=== PATIENT | female | born 1950 | race Caucasian/White ===

== ENCOUNTER 2017-03-17 05:53 | Day surgery (SDC) | payer OTHER, MEDICARE ==
--- NOTE | 2017-03-11 10:34 | GHP ---
[f rep st] HISTORY AND PHYSICAL DATE OF ADMISSION: 03/17/2017 ADMITTING DIAGNOSES: 1. Uterine fibroids. 2. Hydrosalpinx. 3. Thickened endometrial lining. HISTORY OF PRESENT ILLNESS: Patient is a 66-year-old postmenopausal female, nulliparous, who presents to my office in mid January to followup MRI results. Patient was having some hip problems as well as lower abdominal fullness and underwent an MRI in November. MRI showed multiple myometrial masses within the uterus consistent with fibroids, the largest measuring 3.5 cm. It also showed a complex lobulated fluid collection in the right adnexa, measuring 6 x 4 cm, and this was new from the previous study. Patient does deny any postmenopausal bleeding. She is stable on bio-identical hormone replacement. No weight changes. No early satiety. She does, again, note some abdominal fullness and some mild discomfort but denies any pain at this time. Patient did get an ultrasound in my office, and the ultrasound again showed a fibroid uterus, as well as a large 6 x 4 cystic tubular mass, most likely represents a hydrosalpinx. Ovaries not seen bilaterally. Endometrial lining is thickened at 6 mm. Discussed with patient that she is having some discomfort and fullness and that it could be due to these fibroids and/or large fluid-filled tube. It was recommend going in surgically, laparoscopically, and looking at etiology of her discomfort as well as removing the hydrosalpinx and the other tube, because 20% of ovarian cancer can start in the tubes, as well as doing a biopsy of the lining of the uterus secondary to a thickened endometrium. Patient agrees with the plan at this time PAST OBSTETRICAL HISTORY: Patient is nulliparous. GYNECOLOGIC HISTORY: Age of menarche is 8. She is postmenopausal since the age 53. She has had 1 abnormal Pap smear and had a colposcopy done; no treatment. She does have a history of herpes diagnosed in 1984. Denies exposure to any other sexually transmitted diseases. Last Pap smear was 2016 and normal. PAST MEDICAL HISTORY: Diverticulitis, uterine fibroids, hypothyroidism, depression, and anxiety. PAST SURGICAL HISTORY: Tonsil and adenoids in 195, myomectomy 1984, and 2000 cosmetic surgery (tummy tuck). CURRENT MEDICATIONS: [place] Thyroid, Lunesta, Paxil, Wellbutrin, bio-identical hormones. ALLERGIES: No known drug allergies. Food allergies include soy, sesame seed, almonds, and gluten. SOCIAL HISTORY: Patient is in a monogamous relationship for the past 4 years. She is a Medicare sales consultant insurance. Denies any tobacco or illicit drug use. She does drink 1-2 drinks per week. She is on a gluten-free diet. Drinks 1-2 cups of caffeine a day. FAMILY HISTORY: Father with lung cancer and at age 72. REVIEW OF SYSTEMS: 10-point review of systems is negative. Positive pertinent' s noted in HPI. PHYSICAL EXAMINATION: CONSTITUTIONAL: A well-nourished well-developed female. Alert and oriented x3. No apparent distress. VITAL SIGNS: On admission, stable. Patient is afebrile. CARDIOVASCULAR: Regular rate and rhythm. PULMONARY: Lungs are clear to auscultation bilaterally. ABDOMEN: Not distended, soft, nontender. There are scars from the previous tummy tuck with a loki-umbilicus. PELVIC: On bimanual exam, there is a small irregular-shaped uterus noted, nontender. Normal adnexa, some right adnexal fullness noted. EXTREMITIES: Normal to inspection without calf tenderness or edema. ASSESSMENT: Patient is a 66-year-old, nulliparous postmenopausal female with symptomatic uterine leiomyomata, hydrosalpinx, and thickened uterine endometrial lining. 1. We discussed surgery, diagnostic laparoscopy with removal of bilateral tubes and biopsy of the uterine lining. 2. We discussed its limitations, n.p.o. status, and postop recovery. 3. Surgical consents were obtained. Risks, benefits, and alternatives were reviewed with the patient including, but not limited to, bleeding, infection, and damage to surrounding organs. She understands all risks and wants to proceed with surgery. 4. Consult GS,will have Dr. Marlen Pham or partner (whoever is available) to go in through the loki-umbilicus to make the incision and place the trocar and the port for laparoscopy. 5. On-call antibiotics. 6. SCDs for DVT prophylaxis. /[id number]/MODL MTDD
[2017-03-17] MEDS ORDERED: LR 1,000 ML IV SCH (06:40)
[2017-03-17] MEDS ORDERED: ceFAZolin 2 GM/DEXTROSE 100 ML IV ONE (06:40)
[2017-03-17] MEDS ORDERED: LIDOCAINE 1% 2 ML INJ ID PRN (06:41)
[2017-03-17] MEDS ORDERED: LR 1,000 ML IV ONE (06:41)
[2017-03-17] MEDS ORDERED: BUPIVACAINE 0.5% 30 ML SDV ONE (06:51)
[2017-03-17 06:56] VITALS: PULSE 76
[2017-03-17] MEDS ORDERED: MIDAZOLAM 2 MG/2 ML VIAL IVP ONE (07:02)
--- NOTE | 2017-03-17 07:02 | PDANEPAE ---
ANE History of Present Illness 66 yo or laparscopy ANE Past Medical History - Cardiovascular History Hx Hypertension: No Hx Arrhythmias: No Hx Chest Pain: No Hx Coronary Artery / Peripheral Vascular Disease: No Hx CHF / Valvular Disease: No Hx Palpitations: No - Pulmonary History Hx COPD: No Hx Asthma/Reactive Airway Disease: No Hx Recent Upper Respiratory Infection: No Hx Oxygen in Use at Home: No Hx Sleep Apnea: No Sleep Apnea Screening Result - Last Documented: Negative - Neurologic History Hx Cerebrovascular Accident: No Hx Seizures: No Hx Dementia: No - Endocrine History Hx Diabetes: No - Renal History Hx Renal Disorders: No - Liver History Hx Hepatic Disorders: No - Neurological & Psychiatric Hx Hx Neurological and Psychiatric Disorders: Yes Neurological / Psychiatric History Comment: BRAIN INJURY, PAXIL, WELLBUTRIN - Cancer History Hx Cancer: No - Congenital Disorder History Hx Congenital Disorders: No - GI History Hx Gastrointestinal Disorders: Yes Gastrointestinal History Comment: ALLERGIC TO GLUTEN. GERD INTERMITTENT - Other Health History Other Health History: BRUISE EASILY - Chronic Pain History Chronic Pain: Yes (PT HAS STEROID IJECTION BILAT HIPS) - Surgical History Prior Surgeries: NONE ANE Review of Systems Review of Systems: - Exercise capacity METS (RN): 4 METS ANE Patient History - Allergies Allergies/Adverse Reactions: No Known Allergies Allergy (Verified 03/14/16 18:14) - Home Medications Home medications: home medication list seen and reviewed Home Medications: Paxil 10mg (RX) 05/04/15 [Last Taken Unknown] Ramelteon [Rozerem] 05/04/15 [Last Taken Unknown] buPROPion [Wellbutrin 100mg (RX)] 05/04/15 [Last Taken Unknown] - NPO status NPO Status: no food or drink >8 hours NPO Since - Liquids (Date): 03/16/17 NPO Since - Liquids (Time): 22:00 NPO Since - Solids (Date): 03/16/17 NPO Since - Solids (Time): 22:00 - Anes Hx Anes Hx: no prior problems - Smoking Hx Smoking Status: Never smoked - Family Anes Hx Family Hx Anesthesia Complications: NONE ANE Labs/Vital Signs - Vital Signs Blood Pressure: 105/65 Heart Rate: 76 Respiratory Rate: 16 O2 Sat (%): 96 Height: 5 ft 7 in Weight: 78.018 kg ANE Physical Exam - Airway Neck exam: FROM Mallampati Score: Class 2 Mouth exam: normal dental/mouth exam - Pulmonary Pulmonary: no respiratory distress - Cardiovascular Cardiovascular: regular rate and rhythym - ASA Status ASA Status: II ANE Anesthesia Plan Anesthesia Plan: general endotracheal anesthesia
[2017-03-17] MEDS ORDERED: fentaNYL 100 MCG/2 ML INJ ONE ×3 (07:09→09:29)
[2017-03-17] MEDS ORDERED: REMIFENTANIL HCL 1 MG VIAL ONE (07:09)
[2017-03-17] MEDS ORDERED: PROPOFOL/EMULSION 500 MG/50 ML BOTTLE IV ONE (07:09)
--- NOTE | 2017-03-17 07:12 | PDHPUP ---
History & Physical Update H&P update statement: This history and physical update is based on an assessment of the patient which was completed after admission or registration (within 24 hours), but prior to the surgery/procedure. H&P update: H&P reviewed & patient examined, no change in patient's condition since H&P completed
[2017-03-17] MEDS ORDERED: DEXAMETHASONE 4 MG/ML VIAL ONE (07:13)
[2017-03-17] MEDS ORDERED: ROCURONIUM 50 MG/5 ML VIAL ONE (07:13)
[2017-03-17] MEDS ORDERED: NALOXONE HCL 0.4 MG/ML INJ IVP PRN (08:34)
[2017-03-17] MEDS ORDERED: HYDROmorphONE/DILAUDID 1 MG/ML SYR IVP PRN (08:34)
[2017-03-17] MEDS ORDERED: ONDANSETRON 4 MG/2 ML VIAL IVP PRN (08:34)
[2017-03-17] MEDS ORDERED: fentaNYL 100 MCG/2 ML INJ IVP PRN (08:34)
[2017-03-17] MEDS ORDERED: KETOROLAC 30 MG/1 ML SDV ONE (08:38)
[2017-03-17] MEDS ORDERED: SUGAMMADEX SODIUM 200 MG/2 ML VIAL IVP ONE (08:39)
[2017-03-17] MEDS ORDERED: SILVER NITRATE APPLICATOR 1 APPL TP ONE (08:42)
--- NOTE | 2017-03-17 08:56 | POSTOPPROG ---
Post Op Note Date of Operation: 03/17/17 Surgeon: Nicolette Ulloa Wind Turbine Engineer: Alma Zavala Anesthesiologist: Dr. Cormier Anesthesia: GET(General Endotracheal) Pre-op Diagnosis: Uterine fibroids; R hydrosalpinx; Thickened endometrial lining Post-op Diagnosis: Uterine fibroids; R hydrosalpinx; Thickened endo lining; LLQ adhesions Indication: 66 y/o G0 w/ abd. fullness and fibroids, hydrosalpinx, EMS at 6 mm Procedure: Laparoscopic BSO; XAVI; D&C Findings: Uterus w/ 4 cm post fibroid; 5cm R hydroslapinx; LLQ adhesions. Other wnl Inf/Abcess present in the surg proc area at time of surgery?: No Depth: Superfical (Skin SQ) EBL: Minimal (10cc) Total fluids administered: 1 L LR UO: 125 cc clear urine at end Complications: none Specimen(s): Bilateral tubes and ovaries
--- NOTE | 2017-03-17 09:05 | POSTANESTH ---
Post Anesthetic Evaluation Cardiovascular Status: Normal, Stable Respiratory Status: Normal, Stable Level of Consciousness/Mental Status: Can Participate in Eval Pain Control: Adequate, Prn Tx Ordered Nausea/Vomiting Control: Adequate, Prn Tx Ordered Complications Possibly Related to Anesthesia: None Noted
[2017-03-17 09:45] VITALS: TEMP 97.9
[2017-03-17 10:15] VITALS: BP 102/63; RESP 14; O2SAT 92
--- NOTE | 2017-03-17 15:31 | GOP ---
[f rep st] OPERATIVE REPORT DATE OF OPERATION: 03/17/2017 SURGEON: Nicolette Ulloa DO POULTRY SLAUGHTERER: Alma Zavala DO. ANESTHESIA: General endotracheal. ANESTHESIOLOGIST: Rajendra Corrigan MD PREOPERATIVE DIAGNOSIS: 1. Uterine fibroids. 2. Right hydrosalpinx. 3. Thickened endometrial lining. POSTOPERATIVE DIAGNOSIS: 1. Uterine fibroids. 2. Right hydrosalpinx. 3. Thickened endometrial lining. 4. Left lower quadrant pelvic adhesions. PROCEDURE PERFORMED: Diagnostic laparoscopy, bilateral salpingo-oophorectomy, and dilation and curettage. FINDINGS: Uterus was enlarged and sounded to 8 cm. There was a large 3 to 4 cm posterior fibroid noted. A 5 cm right hydrosalpinx was noted. Normal- appearing left tube and ovary, as well as right ovary. Upper abdomen grossly normal appearing. There were left lower quadrant pelvic adhesions noted. All specimens sent to Pathology. SPECIMENS: Bilateral tubes and ovaries. ESTIMATED BLOOD LOSS: 10 cc. INDICATIONS: Patient is a 66-year-old, nulliparous female, who presents with abdominal fullness and hip pain and had an MRI that showed uterine masses consistent with fibroids. Pelvic ultrasound was done that showed, again, uterine fibroids as well as a right 6 cm complex mass, consistent with hydrosalpinx, and a thickened endometrium measuring 6 mm. Discussed proceeding with surgery, secondary to her discomfort, to remove tubes and ovaries, as well as sample the endometrial lining. Discussed risks of the procedure and benefits of the procedure. The patient understands all risks of the procedure and wants to proceed with surgery at this time. The patient was properly counseled and consented. DESCRIPTION OF PROCEDURE: Patient was taken to the operating room where general anesthesia was obtained without difficulty. The patient was placed in dorsal lithotomy position, prepped and draped in the usual sterile manner. Abernathy catheter was placed in the bladder. Open-sided speculum placed in the vagina. The anterior lip of the cervix was grasped with single-tooth tenaculum. Uterus was sounded to 8 cm and [place] was passed up into the uterus to provide a means to manipulate the uterus. The speculum was then removed from the vagina. We then turned our attention to patient's abdomen. At this time, Dr. Jerry Montez came in, and placed the umbilical trocar and port using a 5 mm incision. After pneumoperitoneum was obtained, the patient was placed in Trendelenburg position. There was adequate visualization of pelvic structures. After injection of more local, another 5 mm skin incision was made in the left lower quadrant, as well as the right lower quadrant. Atraumatic trocars were placed. At this time, the pelvis was visualized. Findings noted as above. The infundibulopelvic ligament on the left side was grasped with the LigaSure, cauterized multiple times, transected, removing the left tube and ovary. They was removed through the left 5 mm port without difficulty. We then turned our attention to the large right hydrosalpinx. This was cauterized and drained with clear serous fluid noted. The IP ligament on the right side was grasped with the LigaSure, cauterized multiple times, transected. The right tube and right ovary, were then removed through the right 5 mm port without difficulty. We did look at all our pedicles and everything appeared hemostatic. The pelvis was irrigated with copious amounts of normal saline. Hemostasis was noted. The laparoscope was then removed. All gas was allowed to escape from the abdomen. Trocar sleeves were then removed as well. The 5 mm skin incisions were all closed with 3-0 Vicryl, and covered with Steri-Strips and Band-Aids. We then turned our attention down below. The [place] manipulator was removed as well as Allis from the cervix. A speculum was placed inside the vagina. The Allis clamp was used to grasp the anterior lip of the cervix. The uterus sounded to 8 to 9 cm and dilated up to a #7 Hegar, and then a sharp curette was advanced to the uterus, and the lining of the uterus was curettaged, and these endometrial curettings were sent to Pathology. All instruments were removed from the vagina. There was some active bleeding noted from the tenaculum site. Silver nitrate was used x2. Hemostasis was noted. There were no complications. Patient tolerated the procedure well. All instrument, sponge, and needle counts were correct x2. Patient was then taken out of dorsal lithotomy position, awakened, and taken to recovery room in stable condition. IV FLUIDS: 1 L of LR. URINE OUTPUT: 125 cc of clear urine at the end of the procedure. COMPLICATIONS: None. /[id number]/MODL MTDD
--- NOTE | 2017-03-20 12:26 | GOP ---
[f rep st] OPERATIVE REPORT DATE OF OPERATION: 03/17/2017 SURGEON: Jerry Montez MD PREOPERATIVE DIAGNOSIS: Pelvic pain. POSTOPERATIVE DIAGNOSIS: Pelvic pain. PROCEDURE PERFORMED: Diagnostic laparoscopy. FINDINGS: INDICATIONS: The patient is a 66-year-old female who was in the operating room, undergoing laparosco pic pelvic procedure by Dr. Ulloa. I was asked to consult and help with abdominal access because of the patient's previous abdominal surgery. She was found to have scarring from a previous abdominal plasty, but no other major surgical scars. DESCRIPTION OF PROCEDURE: The patient was in the operating room under general anesthesia, prepped an d draped in usual sterile fashion. A short incision was made through one of the periumbilical scars. A Veress needle was inserted. Pneumoperitoneum was established. A 5 mm trocar was then introduced . The abdomen was clear of significant adhesions and access was readily available for their procedur e. At that point, the surgery was turned back over to Dr. Ulloa and her portions will be dictated s eparately. /[id number]/MODL
== END 2017-03-17 10:40 | disposition home or self-care (01) ==
LOC: FSGY 05:53
PROVIDERS: ATTEND Obstetrics & Gynecology
PROC: 0WJH4ZZ Inspection of Retroperitoneum, Percutaneous Endoscopic Approach (ICD-10-PCS; 2017-03-17)
PROC: 0UDB8ZX Extraction of Endometrium, Via Natural or Artificial Opening Endoscopic, Diagnostic (ICD-10-PCS; principal; 2017-03-17 07:15)
PROC: 0UB74ZZ Excision of Bilateral Fallopian Tubes, Percutaneous Endoscopic Approach (ICD-10-PCS; principal; 2017-03-17 07:15)
PROC: 0UB24ZZ Excision of Bilateral Ovaries, Percutaneous Endoscopic Approach (ICD-10-PCS; principal; 2017-03-17 07:15)
DX: D25.1 Intramural leiomyoma of uterus (principal); N70.11 Chronic salpingitis; R93.8 Abnormal findings on diagnostic imaging of other specified body structures; R10.2 Pelvic and perineal pain
CPT/HCPCS: J0690; J1100; J1885; J2250; J2704; J3010

== ENCOUNTER → 2017-10-19 | Outpatient (CLI) | payer OTHER, MEDICARE | LOC: FIMAGING 10:45 | PROVIDERS: ATTEND Family Medicine | DX: Z13.820 Encounter for screening for osteoporosis (principal); M85.89 Other specified disorders of bone density and structure, multiple sites; E03.9 Hypothyroidism, unspecified; Z78.0 Asymptomatic menopausal state; Z79.890 Hormone replacement therapy ==

== ENCOUNTER → 2018-04-03 | Outpatient (CLI) | payer OTHER, MEDICARE ==
[~2018-04-03] MED LIST: IOPAMIDOL (ISOVUE 370) 100 ML BTL IV ONE; IOPAMIDOL (ISOVUE-300) 150 ML BTL ONE; LIDOCAINE 1% 300 MG/30 ML SDV ONE; NA BICARBONATE 50 MEQ/50 ML VIAL ONE; ROPIVACAINE HCL 150 MG/30 ML INJ ONE; SODIUM BICARBONATE 10 MEQ/10 ML SYR IVP ONE
== END ==
LOC: FIMAGING 10:13
PROVIDERS: ATTEND Physician Assistant
PROC: 3E0U3BZ Introduction of Anesthetic Agent into Joints, Percutaneous Approach (ICD-10-PCS; principal; 2018-04-03)
DX: M25.552 Pain in left hip (principal)
CPT/HCPCS: 20610; 77002; J2795; Q9967

== ENCOUNTER → 2018-10-23 | Outpatient (CLI) | payer OTHER, MEDICARE | LOC: FIMAGING 09:15 | PROVIDERS: ATTEND Family Medicine | DX: Z12.31 Encounter for screening mammogram for malignant neoplasm of breast (principal) ==